=== PATIENT | female | born 1955 | race Caucasian/White ===

== ENCOUNTER → 2020-10-22 09:24 | Outpatient (CLI) | payer OTHER, SELFPAY ==
[2020-10-14 11:18] VITALS: BMI 21.6
--- NOTE | 2020-10-22 12:30 | PFT ---
INTRODUCTION: The patient is a 65-year-old female who presents for pulmonary function studies secondary to a diagnosis of cough. Respiratory therapy reports good patient effort. Bronchodilators were used during testing. INTERPRETATION: Forced expiration spirometry demonstrates no evidence of a large airways obstructive ventilatory defect. There was no significant response to aerosolized bronchodilators. Spirograms are of good quality and plateau normally. Body plethysmography was performed and reveals lung volumes to be within normal limits. Diffusing capacity by single breath CO was only mildly reduced at 72% of predicted. IMPRESSION: Isolated mild reduction in diffusing capacity. Normal spirometry and lung volumes.
== END ==
PROVIDERS: PCP Nurse Practitioner Primary Care; Referring Provider Internal Medicine Critical Care Medicine; Visit Provider Internal Medicine Critical Care Medicine
DX: R05 Cough (principal)
CPT/HCPCS: 94060; 94726; 94729